=== PATIENT | female | born 1970 | race Caucasian/White ===

== ENCOUNTER → 2021-08-11 | Day surgery (SDC) | payer BC, OTHER | END | disposition home or self-care (01) | LOC: JRADIR 09:38 | PROVIDERS: ATTEND Internal Medicine Endocrinology, Diabetes & Metabolism | PROC: 0G9G3ZX Drainage of Left Thyroid Gland Lobe, Percutaneous Approach, Diagnostic (ICD-10-PCS; principal; 2021-08-11) | PROC: BG44ZZZ Ultrasonography of Thyroid Gland (ICD-10-PCS; 2021-08-11) | DX: D44.0 Neoplasm of uncertain behavior of thyroid gland (principal) | CPT/HCPCS: 10005; 76942; 88173; 88305-TC ==

== ENCOUNTER 2021-09-09 04:05 | Day surgery (SDC) | payer BC, OTHER ==
[2021-09-07 14:53] VITALS: BMI 31.3
[2021-09-09] MEDS ORDERED: LIDOCAINE 1%/EPI 1:100000 (20 ML MULTI DOSE VIAL) ONE (07:19)
[2021-09-09] MEDS ORDERED: LIDOCAINE 1%/EPI 1:100000 (20 ML MULTI DOSE VIAL) IJ ONE ×2 (07:20→08:19)
[2021-09-09] MEDS ORDERED: BENZOIN/ALOE VERA/STORAX/TOLU 58 ML BOTTLE ONE (07:21)
[2021-09-09] MEDS ORDERED: MICROFIBRILLAR COLLAGEN 1 GM EACH TP ONE ×2 (07:21→11:17)
[2021-09-09] MEDS ORDERED: oxyCODONE HCL 5 MG TABLET PO PRN (07:57)
[2021-09-09] MEDS ORDERED: ONDANSETRON 4 MG/2 ML VIAL IVPUSH PRN (07:57)
[2021-09-09] MEDS ORDERED: LACTATED RINGERS SOLUTION 1,000 ML IV SCH (08:00)
[2021-09-09] MEDS ORDERED: ceFAZolin 2 GRAM PREMIX BAG IVPB ONE (08:19)
[2021-09-09] MEDS ORDERED: oxyCODONE HCL 5 MG TABLET ONE (14:34)
[2021-09-09 18:03] VITALS: PULSE 88
[2021-09-09 18:17] VITALS: BP 140/80; TEMP 98
== END 2021-09-09 17:30 | disposition home or self-care (01) ==
LOC: JASU-SURG 04:05
PROVIDERS: ATTEND Otolaryngology
PROC: 0GTG0ZZ Resection of Left Thyroid Gland Lobe, Open Approach (ICD-10-PCS; principal; 2021-09-09 08:00)
DX: C73 Malignant neoplasm of thyroid gland (principal)
CPT/HCPCS: 88307-TC; 94760